=== PATIENT | female | born 1980 ===

== ENCOUNTER 2018-05-08 20:27 | Emergency (ER) | payer MEDICAID, SELFPAY ==
[2018-05-08] MEDS ORDERED: Propofol 1,000 MG/100 ML VIAL IV ONE (20:41)
[2018-05-08] MEDS ORDERED: Midazolam HCl 2 mg/2 ml Vial ONE (20:45)
[2018-05-08] MEDS ORDERED: Midazolam HCl 5 mg/ml Vial ONE (20:46)
[2018-05-08 21:50] LABS: ALT (SGPT) 283 U/L (8-55); AST (SGOT) 325 U/L (5-34); Albumin 3.8 g/dL (3.5-5.0); Alkaline Phosphatase 59 U/L (40-150); BUN (Urea Nitrogen) 10 mg/dL (7.0-18.7); Bilirubin, Total 0.2 mg/dL (0.2-1.2); Calc. Creatinine Clearance 0 mL/min (70-130); Calcium 9.2 mg/dL (7.8-10.44); Carbon Dioxide Less than 8 mmol/L (22-29); Chloride 107 mmol/L (98-107); Estimated GFR-MDRD 56; Globulin 2.9 g/dL (2.4-3.5); Glucose 348 mg/dL (70-105); Potassium 3.7 mmol/L (3.5-5.1); Protein, Total 6.7 g/dL (6.0-8.3); Sodium 138 mmol/L (136-145)
[2018-05-08 21:52] LABS: CKMB 5.9 ng/mL (0-6.6); Hemoglobin 13.2 g/dL (12.0-16.0); Mean Corpuscular HGB CONC 29.9 g/dL (32.0-36.0); Mean Corpuscular Hemoglobin 29.1 pg (27.0-31.0); Mean Corpuscular Volume 97.1 fL (78.0-98.0); Mean Platelet Volume 8.7 fL (7.4-10.4); Platelet Count 277 thou/uL (130-400); RBC Distribution Width 13.8 % (11.5-14.5); Red Blood Cell (RBC) Count 4.56 mill/uL (4.20-5.40); Troponin I 0.186 ng/mL (< 0.028); White Blood Cell (WBC) Count 30.7 thou/uL (4.8-10.8)
--- NOTE | 2018-05-08 21:54 | RAD ---
FRONTAL RADIOGRAPH CHEST 05/08/18 COMPARISON: None. HISTORY: Endotracheal tube placement. FINDINGS: Endotracheal tube is in place, extending into the right main stem bronchus. Nasogastric tube extends into upper abdomen. Moderate sized pneumothorax present on the left, primarily in the base. There is nonspecific mild bilateral interstitial prominence. IMPRESSION: Right main stem intubation. Left sided pneumothorax. Dr. Norwood made aware, 9:44 p.m., 05/08/18. Code CR POS: [id number]
[2018-05-08 22:06] LABS: Band 15 % (5-11); Eosinophils 1 % (0-10); Lymphocytes 33 % (21-51); Manual Diff?? YES; Monocytes 4 % (0-10); Neutrophil 47 % (42-75)
[2018-05-08 22:07] LABS: MDiff Complete? YES; PLT Morphology Comment Appears Adequate; RBC Morphology Normal
[2018-05-09] MEDS ORDERED: Sodium Chloride 0.9% 1,000 ML ONE (05:34)
== END 2018-05-08 21:50 | disposition short-term general hospital (02) ==
LOC: NAV ERS 20:27
DX: I46.9 Cardiac arrest, cause unspecified (principal); R79.89 Other specified abnormal findings of blood chemistry; R09.02 Hypoxemia; D72.829 Elevated white blood cell count, unspecified; I10 Essential (primary) hypertension
CPT/HCPCS: 31500; 32554; 36415; 51702; 71045; 80053; 82553; 84484; 85025; 92950; 93005; 94760; 96365; 96375; 99292; J2250; J2704